=== PATIENT | female | born 1955 | race Caucasian/White ===

== ENCOUNTER → 2017-10-15 00:09 | Outpatient (CLI) | payer BC, SELFPAY ==
--- NOTE | 2017-10-15 08:53 | DI.REPORT_ITS ---
SYMPTOM/DIAGNOSIS: UPPER ABD PAIN R10.10 CCK HEPATOBILIARY SCAN: Comparison is made with 26 October 2007. 5.0 mCi Tc 99M Mebrofenin were administered IV. There is normal hepatic uptake. The gallbladder and small bowel are promptly visualized. 0.9 micrograms of Kinevac are administered via IV drip over 30 minutes. The gallbladder ejection fraction is 99%. IMPRESSION: Normal CCK hepatobiliary scan.
[2017-10-15] MEDS: Sincalide 5 MCG VIAL 0.9 MCG IJ (11:19)
== END ==
PROVIDERS: PCP Internal Medicine; Visit Provider Internal Medicine
DX: R10.11 Right upper quadrant pain (principal)
CPT/HCPCS: 78227

== ENCOUNTER 2017-11-13 18:57 | Outpatient (REF) | payer BC, SELFPAY ==
[2017-11-17 11:17] LABS: IgA 67 mg/dL (85-499); IgG 690 mg/dL (610-1616); IgM 19 mg/dL (35-242)
[2017-11-17 15:15] LABS: Cheese Cheddar IgE <0.35 kU/L; Milk, IgE <0.35 kU/L; Whey, IgE <0.35 kU/L
== END 2017-11-13 18:58 ==
LOC: LBN 18:57
PROVIDERS: PCP Internal Medicine; Visit Provider Otolaryngology Otolaryngology/Facial Plastic Surgery
DX: R10.812 Left upper quadrant abdominal tenderness (principal); G89.29 Other chronic pain; R10.9 Unspecified abdominal pain
CPT/HCPCS: 82784; 86003

== ENCOUNTER 2018-02-12 08:50 | Outpatient (CLI) | payer BC, SELFPAY ==
--- NOTE | 2018-02-12 08:45 | DI.RAD_ITS ---
SYMPTOM/DIAGNOSIS: PAINFUL HARDWARE RT ANKLE RIGHT ANKLE: Three views were obtained. No previous films available for comparison. There is plate and screw fixation of the distal fibula and fixation screws also present in the distal tibia. Mild degenerative changes of the joints of the ankle noted. No other significant bony abnormality is seen.
== END 2018-02-12 09:10 ==
PROVIDERS: PCP Internal Medicine; Visit Provider Physician Assistant
DX: T84.84XA Pain due to internal orthopedic prosthetic devices, implants and grafts, initial encounter (principal)
CPT/HCPCS: 73610

== ENCOUNTER 2018-03-04 09:59 | Outpatient (CLI) | payer BC, SELFPAY | END 2018-03-04 10:19 | PROVIDERS: PCP Internal Medicine; Visit Provider Student in an Organized Health Care Education/Training Program | DX: T84.84XA Pain due to internal orthopedic prosthetic devices, implants and grafts, initial encounter (principal); Z01.818 Encounter for other preprocedural examination ==

== ENCOUNTER 2018-03-10 10:28 | Day surgery (SDC) | payer BC, SELFPAY ==
[2018-03-10 10:40] VITALS: BP 125/80; PULSE 71; RESP 16; TEMP 36.6; O2SAT 95
--- NOTE | 2018-03-10 10:55 | DI.RAD_ITS ---
SYMPTOMS/DIAGNOSIS: PAINFUL ORTHOPEDIC HARDWARE REMOVAL RIGHT ANKLE, C-ARM FLUOROSCOPY: Fluoroscopy Time: 7.1 sec, 0.18 mGy C-arm fluoroscopy was utilized by Dr. Fraser during reported hardware removal. Hard copies show removal of the previously noted plate and screw fixation of the distal fibula. Hardware of the distal tibia remains in place.
[2018-03-10] MEDS: Lactated Ringers 1,000 ML 80 ML IV (11:00)
--- NOTE | 2018-03-10 11:46 | PDOC.DSDIS_ITS ---
Discharge Plan Disposition Patient Disposition: HOME Condition: Good Discharge Details Reason For Visit: R) ANKLE PAINFUL HARDWARE Attending Provider: Main Fraser Primary Care Provider: Ej Bustamante Home Meds and New Rx's Prescriptions: New tramadol 50 mg tablet 50 mg PO Q6H PRN (Reason: pain) Qty: 6 RF: 0 walker misc .ROUTE .MEDSUPPLY Qty: 1 RF: 0 Continued hyoscyamine sulfate 0.125 mg tablet 0.125 mg PO QID RF: 0 estradiol [Estrace] 0.01 % (0.1 mg/gram) cream 1 gm VG DAILY RF: 0 lansoprazole 15 mg capsule,delayed release(DR/EC) 15 mg PO DAILY RF: 0 glycopyrrolate 1 mg tablet 1 mg PO TID PRNRF: 0 lorazepam 1 MG tablet 0.5 mg PO BID RF: 0 fluoxetine 20 MG capsule 40 mg PO DAILY RF: 0 Loratadine 10 MG TAB.RAPDIS 10 mg PO DAILY RF: 0 lysine [L-Lysine] 500 mg Tablet 500 mg PO DAILY RF: 0 acetaminophen [Tylenol] 325 mg Capsule 325 mg PO Q6H PRNRF: 0 ketoconazole 120 ML shampoo 1 applic Topical DAILY PRN PRNRF: 0 cholecalciferol (vitamin D3) 1,000 UNITS tablet 1,000 unit PO DAILY RF: 0 diclofenac sodium [Voltaren] 100 GM gel 1 applic Topical TID PRN PRNRF: 0 Probiotic and Acidophilus 1 EACH capsule 1 cap PO DAILY PRN PRNRF: 0 Discharge Instructions Additional Instructions: Activity: You may weight bear as tolerated. You should keep the leg elevated as much as possible. You may wiggle your toes and move your hip and knee. You should wear the fracture walking boot when you are up and mobilizing, but may remove it when not and move your ankle as tolerated. Dressings: You should keep the initial dressing on for at least 3 days. After 3 days, you may remove it and get it wet in the shower. You should keep it covered with a light gauze dressing or wrap until follow-up. Medications: - You should take Tylenol and Ibuprofen gel-cap around the clock for baseline pain. - You have been prescribed a stronger narcotic, Tramadol, for breakthrough pain. Follow-up: 2 weeks Referrals: Main Fraser MD [ [facility] STAFF PHYSICIAN] - Equipment/Supplies: Partial Weight Bearing Crutches Activity:: Elevate Remove Dressings/Wound Care:: 72 hours Shower/Bathe:: 72 hours Diet:: As Tolerated Discharge Orders Discharge Orders: Discharge Order (Routine); Ordered 03/10/18 Ordered By: Main Fraser DS: Diagnosis Discharge Diagnosis (1) Painful orthopaedic hardware: Status: Chronic
[2018-03-10 13:15] VITALS: BP 121/80; PULSE 65; RESP 17; TEMP 36.5; O2SAT 99
--- NOTE | 2018-03-12 07:32 | ROE_ITS ---
REPORT OF OPERATIVE PROCEDURE DATE OF SURGERY March 10, 2018 PREOPERATIVE DIAGNOSIS Painful hardware of right ankle. POSTOPERATIVE DIAGNOSIS Painful hardware of right ankle. SURGERY Hardware removal of right ankle. SURGEON Main Fraser M.D. ANESTHESIA MAC ESTIMATED BLOOD LOSS Minimal. COMPLICATIONS None. DISPOSITION The patient was awakened from anesthesia and taken to the PACU in stable condition. INDICATION FOR PROCEDURE Stephanie is a 62-year-old who has painful hardware of her right ankle. This was repaired some years ago , but over the last few years, it has become more painful. It hurts with direct pressure and the scre ws are palpable and prominent visually. They irritate her shoes and she is unable to wear certain carlos ewear because of it. She has tried modifying her shoewear, but it continues to bother her where she h as calluses over these areas. She sought to have this removed. I reviewed the risks to include bleedi ng, infection, pain, stiffness, re-fracture, damage to nerves and vessels. Despite these risks, she e lected to proceed. PROCEDURE DESCRIPTION Stephanie was greeted in the Preoperative holding area. Her identity was confirmed and the correct side was identified and marked. The consent was reviewed with the patient and signed. The history and phys ical was updated. She was taken back to the Operating Room and placed in the supine position. All bon y prominences were well padded. The right leg had a nonsterile tourniquet placed high up on the right thigh, but it was not used. The right leg was prepped with ChloraPrep and draped in a standard fashi on. Prophylactic antibiotics in the form of cefazolin were given. A time-out was performed for safe s urgery. The surgical site was injected with 0.5% Marcaine with epinephrine. The incision was opened and taken down sharply to the level of the plate. With deep dissection down to the plate, I was able to expose the plate fully using knife and a Otoole elevator. The screws on the plate were removed. The plate was removed from the bone. The x-rays performed in the office showed what appeared to be mainly some cyst ic changes on the distal aspect of the fibula. A curette was used to curette out the screw holes. The re was no purulent material. There was no large cystic change seen within the fibula in person; there fore, there was no further procedure done. These screw holes were curetted out fully from out the ent irety of the fibula. Dissection was also carried over the top of the fibula to remove the interfrag screw. These were all removed without difficulty. The ankle was imaged with a stress view to show the re was no change in the position of the fibula. The wound was thoroughly irrigated. The deep fascia w as closed with a #2-0 Vicryl. The skin was closed with a #3-0 Vicryl, followed by #4-0 Nylon. The wou nd was dressed with Xeroform, 4x4s, Giuliano wrap. She was placed in a fracture walker boot. At the end of the case, all counts were correct. She was transferred back to the PACU in stable condition.
== END 2018-03-10 13:44 | disposition home or self-care (01) ==
PROVIDERS: PCP Internal Medicine; Visit Provider Student in an Organized Health Care Education/Training Program
PROC: (CPT 20680; principal; 2018-03-10 12:15)
DX: T84.84XA Pain due to internal orthopedic prosthetic devices, implants and grafts, initial encounter (principal)
CPT/HCPCS: 20680; 73610; J0690; L4361

== ENCOUNTER 2018-06-16 03:40 | Outpatient (CLI) | payer BC, SELFPAY ==
--- NOTE | 2018-06-16 10:34 | DI.MAMMO_ITS ---
SYMPTOMS/DIAGNOSIS: SCREENING, Z12.39 MAMMOGRAMS: Mammograms were interpreted according to the usual protocol including computer analysis with CAD system, tomosynthesis and C view imaging. The breast tissue is heterogeneously radiodense, which lowers the sensitivity of the study. There is no dominant mass. There are no suspicious calcifications and there has been no significant interval change when compared with prior images. SUMMARY: No evidence of malignancy, category 1. Yearly screening mammography is recommended. Breast density category C. MQSA ASSESSMENT OF FINDINGS: Negative. Category 1. Patient will receive a letter notifying them of these results. Bi-RADS category C. The breasts are heterogeneously dense, which may obscure small masses.
== END 2018-06-16 04:00 ==
PROVIDERS: PCP Internal Medicine; Visit Provider Physician Assistant Medical
DX: Z12.31 Encounter for screening mammogram for malignant neoplasm of breast (principal)
CPT/HCPCS: 77063; 77067

== ENCOUNTER 2018-10-06 19:08 | Outpatient (REF) | payer BC, SELFPAY ==
[2018-10-06 21:43] LABS: ALT 31 U/L (12-78); AST 14 U/L (15-37); Albumin 4.2 g/dL (3.4-5.0); Alkaline Phosphatase 95 U/L (46-116); Anion Gap 10.2 mmol/L (3-11); BUN 9 mg/dL (7-18); Bilirubin, Total 0.3 mg/dL (0.2-1.0); CO2 25.8 mmol/L (21.0-32.0); CREATININE 0.81 mg/dL (0.55-1.02); Calcium 8.7 mg/dL (8.5-10.1); Chloride 94 mmol/L (98-107); Creatine Kinase 86 U/L (26-192); Glucose 124 mg/dL (70-100); Sodium 130 mmol/L (136-145); Total Protein 6.8 g/dL (6.4-8.2)
[2018-10-06 21:44] LABS: C-Reactive Protein < 0.05 mg/dL (0.0-0.3)
[2018-10-06 22:10] LABS: ESR 7 mm/hr (0-30)
[2018-10-06 22:49] LABS: Ferritin 17 ng/mL (8-388)
== END 2018-10-06 19:28 ==
LOC: NCHCN 19:08
PROVIDERS: PCP Internal Medicine; Visit Provider Internal Medicine
DX: M79.10 Myalgia, unspecified site (principal); G25.81 Restless legs syndrome
CPT/HCPCS: 80053; 82550; 85652; 82728; 86140

== ENCOUNTER 2018-11-17 21:51 | Outpatient (REF) | payer BC, SELFPAY ==
[2018-11-17 21:16] LABS: Anion Gap 8.4 mmol/L (3-11); BUN 8 mg/dL (7-18); CO2 26.6 mmol/L (21.0-32.0); CREATININE 0.88 mg/dL (0.55-1.02); Calcium 8.2 mg/dL (8.5-10.1); Chloride 102 mmol/L (98-107); Ferritin 20 ng/mL (8-388); Glucose 106 mg/dL (70-100); Potassium 3.9 mmol/L (3.5-5.1); Sodium 137 mmol/L (136-145); TSH 1.93 uIU/mL (0.36-3.74)
== END 2018-11-17 22:11 ==
LOC: NCHCN 21:51
PROVIDERS: PCP Internal Medicine; Visit Provider Internal Medicine
DX: Z00.00 Encounter for general adult medical examination without abnormal findings (principal); K58.9 Irritable bowel syndrome, unspecified
CPT/HCPCS: 80048; 82728; 84443

== ENCOUNTER 2018-12-17 10:04 | Outpatient (REF) | payer BC, SELFPAY ==
[2018-12-17 19:36] LABS: Calculated LDL 164 mg/dL; Cholesterol 232 mg/dL (50-200); Ferritin 29 ng/mL (8-388); Glucose 95 mg/dL (70-100); HDL Cholesterol 53 mg/dL (40-60); TSH 2.58 uIU/mL (0.36-3.74); Triglyceride 76 mg/dL (30-150)
== END 2018-12-17 10:24 ==
LOC: NCHCN 10:04
PROVIDERS: PCP Internal Medicine; Visit Provider Internal Medicine
DX: Z00.00 Encounter for general adult medical examination without abnormal findings (principal); G25.81 Restless legs syndrome
CPT/HCPCS: 80061; 82947; 82728; 84443

== ENCOUNTER 2019-01-06 00:55 | Outpatient (CLI) | payer BC, SELFPAY ==
--- NOTE | 2019-01-06 13:30 | DI.DEXA_ITS ---
EXAM: XR DEXA BONE DENSITY W/WO JUNE CLINICAL HISTORY: OSTEOPENIA M85.80 TECHNIQUE: DEXA scan was performed according to the usual protocol. COMPARISON: PREVIOUS EXAM OF 07/2009. LUMBAR SPINE COMPLETE from 01/02/2015 FINDINGS: Findings for lumbar spine scanning are a T-score of -0.1. Previous examination of July 2009 showed heber mbar T-score of 0.8. Left hip scanning shows T-score -0.8, left femoral neck T-score is -1.7. Previous exam of 07/2009 sh owed left hip T-score of -0.2. Left forearm scanning showed T-score of -1.3. Previous examination of July 2009 showed forearm T-scor e of 0.1. IMPRESSION: Findings consistent with osteopenia according to the WHO criteria. Please note that the lateral verte bral scanogram shows no evidence of a vertebral compression fracture.
== END 2019-01-06 01:15 ==
LOC: DI 00:55
PROVIDERS: PCP Internal Medicine; Visit Provider Internal Medicine
DX: M85.88 Other specified disorders of bone density and structure, other site (principal)
CPT/HCPCS: 77080

== ENCOUNTER 2019-02-01 22:31 | Outpatient (REF) | payer BC, SELFPAY | END 2019-02-01 22:51 | LOC: NCHCN 22:31 | PROVIDERS: PCP Internal Medicine | DX: R19.7 Diarrhea, unspecified (principal) | CPT/HCPCS: 87324 ==

== ENCOUNTER 2019-02-22 12:11 | Outpatient (REF) | payer BC, SELFPAY ==
[2019-02-22 19:41] LABS: Ferritin 36 ng/mL (8-252)
== END 2019-02-22 12:31 ==
LOC: NCHCN 12:11
PROVIDERS: PCP Internal Medicine; Visit Provider Internal Medicine
DX: E61.1 Iron deficiency (principal)
CPT/HCPCS: 82728

== ENCOUNTER 2019-08-15 14:37 | Outpatient (REF) | payer BC, SELFPAY ==
[2019-08-15 19:15] LABS: HCT 38.8 % (36.0-46.0); HGB 13.2 g/dL (12.0-15.5); Mean Corpuscular Hemoglobin 30.3 pg (27.0-33.0); Mean Corpuscular Volume 89.2 fL (80-95); Mean Platelet Volume 9.8 fL (8.0-11.0); Platelet Count 337 x1000/uL (130-400); RBC 4.35 m/cumm (4.00-5.20); White Blood Cell Count 4.98 k/cumm (4.4-10.8)
[2019-08-15 19:44] LABS: BUN 6 mg/dL (7-18); Chloride 99 mmol/L (98-107); Ferritin 36 ng/mL (8-252); Glucose 77 mg/dL (74-106); Potassium 3.7 mmol/L (3.5-5.1); Sodium 135 mmol/L (136-145)
== END 2019-08-15 14:57 ==
LOC: NCHCN 14:37
PROVIDERS: PCP Internal Medicine; Visit Provider Internal Medicine
DX: E61.1 Iron deficiency (principal); E87.1 Hypo-osmolality and hyponatremia; K22.9 Disease of esophagus, unspecified
CPT/HCPCS: 80048; 85027; 82728

== ENCOUNTER 2019-10-24 20:23 | Outpatient (REF) | payer BC, SELFPAY ==
[2019-10-24 18:50] LABS: HCT 38.1 % (36.0-46.0); HGB 12.8 g/dL (11.2-15.7); MCH 30.4 pg (27.0-33.0); MCHC 33.6 % (32.0-36.0); MCV 90.5 fL (80-95); MPV 9.3 fL (8.0-11.0); Platelet Count 287 10^3/uL (130-400); RBC 4.21 10^6/uL (3.93-5.22); RDW 12.3 % (11.7-14.6); WBC 6.68 10^3/uL (4.4-10.8)
[2019-10-24 19:32] LABS: ESR 9 mm/hr (0-30)
[2019-10-25 16:41] LABS: CRP, High Sensitivity 0.62 mg/L (See Note)
== END 2019-10-24 20:43 ==
LOC: NCHCN 20:23
PROVIDERS: PCP Internal Medicine; Visit Provider Internal Medicine
DX: L03.115 Cellulitis of right lower limb (principal); K58.9 Irritable bowel syndrome, unspecified; H10.823 Rosacea conjunctivitis, bilateral
CPT/HCPCS: 85027; 85652; 86141; 86140

== ENCOUNTER 2019-11-04 12:07 | Outpatient (CLI) | payer BC, SELFPAY ==
--- NOTE | 2019-11-04 11:15 | DI.RAD_ITS ---
EXAM: XR ANKLE RT COMPLETE CLINICAL HISTORY: right ankle pain. TECHNIQUE: 2D digital imaging was performed. COMPARISON: CR XR ANKLE RT COMPLETE from 02/12/2018 RF XR ANKLE RT COMPLETE from 03/10/2018 FINDINGS: No acute fracture is present. No bony destructive lesion is seen. Lucencies are seen in the distal f ibula related to previous hardware. Screws remain present in the distal tibia. The distal tibia and fibular fractures have healed. Degenerative changes are noted at the tibiotalar joint. Heel spurs are seen. IMPRESSION: Postsurgical and degenerative changes. DATA REPOSITORY: RADIATION DOSE DELIVERED:
--- NOTE | 2019-11-04 11:15 | DI.RAD_ITS ---
EXAM: XR KNEE LT 3V AP,LAT,CATY CLINICAL HISTORY: lt knee pain. TECHNIQUE: 2D digital imaging was performed. COMPARISON: No exams were available for comparison FINDINGS: BONES: No acute fracture is present. No bony destructive lesion is seen. There is mild spurring at the quadriceps insertion on the patella. There is mild periarticular spurring throughout. JOINTS: The knee is normally aligned. No joint effusion is seen. SOFT TISSUE: Normal. IMPRESSION: Mild degenerative changes. DATA REPOSITORY: RADIATION DOSE DELIVERED:
== END 2019-11-04 12:27 ==
PROVIDERS: PCP Internal Medicine; Referring Provider Internal Medicine; Visit Provider Physician Assistant Surgical
DX: M17.12 Unilateral primary osteoarthritis, left knee (principal); M19.071 Primary osteoarthritis, right ankle and foot
CPT/HCPCS: 73562; 73610

== ENCOUNTER 2019-11-10 14:19 | Outpatient (REF) | payer BC, SELFPAY ==
[2019-11-10 19:34] LABS: Calculated LDL 170 mg/dL (<100); Cholesterol 264 mg/dL (<200); Glucose 97 mg/dL (74-106); HDL Cholesterol 53 mg/dL (40-60); Triglyceride 207 mg/dL (<150)
== END 2019-11-10 14:39 ==
LOC: NCHCN 14:19
PROVIDERS: PCP Internal Medicine; Visit Provider Internal Medicine
DX: Z00.00 Encounter for general adult medical examination without abnormal findings (principal); Z13.220 Encounter for screening for lipoid disorders; Z13.1 Encounter for screening for diabetes mellitus
CPT/HCPCS: 80061; 82947

== ENCOUNTER 2019-11-15 11:33 | Outpatient (REF) | payer BC, SELFPAY ==
[2019-11-15 19:58] LABS: Iron 109 ug/dL (50-170); Total Iron Binding Capacity 323 ug/dL (250-450); Transferrin Sat 34 % (15-50)
[2019-11-15 19:59] LABS: ALT 47 U/L (14-59); AST 28 U/L (15-37); Albumin 4.3 g/dL (3.4-5.0); Alkaline Phosphatase 110 U/L (46-116); Anion Gap 11.3 mmol/L (3-11); BUN 7 mg/dL (7-18); Bilirubin, Direct 0.12 mg/dL (0.00-0.20); Bilirubin, Total 0.5 mg/dL (0.2-1.0); CO2 26.7 mmol/L (21.0-32.0); CREATININE 0.73 mg/dL (0.55-1.02); Calcium 8.7 mg/dL (8.5-10.1); Chloride 100 mmol/L (98-107); Glucose 96 mg/dL (74-106); Potassium 3.8 mmol/L (3.5-5.1); Sodium 138 mmol/L (136-145)
[2019-11-15 23:24] LABS: Ferritin 69 ng/mL (8-252); Vitamin B12 856 pg/mL (193-986)
== END 2019-11-15 11:53 ==
LOC: NCHCN 11:33
PROVIDERS: PCP Internal Medicine; Visit Provider Physician Assistant
DX: M79.10 Myalgia, unspecified site (principal)
CPT/HCPCS: 80048; 80076; 82607; 82728; 83540; 83550; 83735

== ENCOUNTER 2019-12-28 10:44 | Outpatient (REF) | payer BC, MEDICAID, SELFPAY ==
[2019-12-28 21:38] LABS: Calculated LDL 198 mg/dL (<100); Cholesterol 284 mg/dL (<200); Glucose 98 mg/dL (74-106); HDL Cholesterol 56 mg/dL (40-60); Triglyceride 152 mg/dL (<150)
[2019-12-28 21:43] LABS: Hemoglobin A1C 5.5 % (<5.7)
== END 2019-12-28 11:04 ==
LOC: NCHCN 10:44
PROVIDERS: PCP Internal Medicine; Visit Provider Physician Assistant
DX: E78.5 Hyperlipidemia, unspecified (principal); Z13.1 Encounter for screening for diabetes mellitus
CPT/HCPCS: 80061; 82947; 83036

== ENCOUNTER 2020-03-12 09:00 | Outpatient (REF) | payer BC, SELFPAY ==
[2020-03-12 19:39] LABS: ALT 36 U/L (14-59); AST 24 U/L (15-37); Albumin 4.2 g/dL (3.4-5.0); Alkaline Phosphatase 86 U/L (46-116); Anion Gap 7.4 mmol/L (3-11); BUN 13 mg/dL (7-18); Bilirubin, Total 0.6 mg/dL (0.2-1.0); CO2 28.6 mmol/L (21.0-32.0); CREATININE 0.82 mg/dL (0.55-1.02); Calcium 8.2 mg/dL (8.5-10.1); Calculated LDL 115 mg/dL (<100); Chloride 101 mmol/L (98-107); Cholesterol 188 mg/dL (<200); Ferritin 47 ng/mL (8-252); Glucose 99 mg/dL (74-106); HDL Cholesterol 60 mg/dL (40-60); Potassium 3.8 mmol/L (3.5-5.1); Sodium 137 mmol/L (136-145); Total Protein 6.9 g/dL (6.4-8.2); Triglyceride 65 mg/dL (<150)
== END 2020-03-12 09:20 ==
LOC: NCHCN 09:00
PROVIDERS: PCP Internal Medicine; Visit Provider Physician Assistant
DX: E78.5 Hyperlipidemia, unspecified (principal); R19.7 Diarrhea, unspecified; E61.1 Iron deficiency
CPT/HCPCS: 80053; 80061; 82728

== ENCOUNTER 2020-06-01 15:37 | Outpatient (REF) | payer OTHER, SELFPAY ==
[2020-06-02 11:38] LABS: COVID-19 RT-PCR UVMMC Result Negative (Negative)
== END 2020-06-01 15:38 | disposition home or self-care (01) ==
LOC: NCHCN 15:37
PROVIDERS: PCP Internal Medicine; Visit Provider Internal Medicine
DX: Z20.822 Contact with and (suspected) exposure to COVID-19 (principal); R06.02 Shortness of breath
CPT/HCPCS: U0003

== ENCOUNTER 2020-08-03 11:10 | Outpatient (REF) | payer OTHER, SELFPAY ==
[2020-08-05 17:29] LABS: COVID-19 RT-PCR UVMMC Result Negative (Negative)
== END 2020-08-03 11:11 | disposition home or self-care (01) ==
LOC: NCHCN 11:10
PROVIDERS: PCP Internal Medicine; Visit Provider Internal Medicine
DX: Z20.822 Contact with and (suspected) exposure to COVID-19 (principal)
CPT/HCPCS: 87635; U0003

== ENCOUNTER 2020-10-15 09:50 | Outpatient (REF) | payer MEDICARE, SELFPAY ==
[2020-10-15 19:30] LABS: Iron 132 ug/dL (50-170); Total Iron Binding Capacity 313 ug/dL (250-450); Transferrin Sat 42 % (15-50)
[2020-10-15 19:40] LABS: ALT 29 U/L (14-59); AST 24 U/L (15-37); Albumin 4.2 g/dL (3.4-5.0); Alkaline Phosphatase 100 U/L (46-116); BUN 12 mg/dL (7-18); Bilirubin, Total 0.6 mg/dL (0.2-1.0); CREATININE 0.8 mg/dL (0.55-1.02); Calcium 8.1 mg/dL (8.5-10.1); Calculated LDL 121 mg/dL (<100); Chloride 99 mmol/L (98-107); Cholesterol 191 mg/dL (<200); Ferritin 43 ng/mL (8-252); Glucose 99 mg/dL (74-106); HDL Cholesterol 52 mg/dL (40-60); Magnesium 1.9 mg/dL (1.8-2.4); Sodium 137 mmol/L (136-145); Total Protein 6.6 g/dL (6.4-8.2); Triglyceride 94 mg/dL (<150)
== END 2020-10-15 09:51 | disposition home or self-care (01) ==
LOC: NCHCN 09:50
PROVIDERS: PCP Internal Medicine; Visit Provider Physician Assistant
DX: E61.1 Iron deficiency (principal); E78.5 Hyperlipidemia, unspecified; R53.1 Weakness
CPT/HCPCS: 80053; 80061; 82728; 83540; 83550; 83735

== ENCOUNTER 2021-04-19 14:43 | Outpatient (REF) | payer MEDICARE, SELFPAY ==
[2021-04-19 19:41] LABS: TSH (W/Ref FT4) 1.81 uIU/mL (0.36-3.74)
== END 2021-04-19 14:44 | disposition home or self-care (01) ==
LOC: LBN 14:43
PROVIDERS: PCP Physician Assistant; Visit Provider Surgery
DX: F45.8 Other somatoform disorders (principal); R53.1 Weakness
CPT/HCPCS: 84443; 84481

== ENCOUNTER 2022-01-20 14:46 | Outpatient (REF) | payer MEDICARE, SELFPAY ==
[2022-01-20 20:20] LABS: Uric Acid 4.5 mg/dL (2.6-6.0)
[2022-01-22 15:46] LABS: HLA-B27 Result Negative
== END 2022-01-20 14:47 | disposition home or self-care (01) ==
LOC: NCHCN 14:46
PROVIDERS: PCP Physician Assistant; Visit Provider Nurse Practitioner Family
DX: R22.41 Localized swelling, mass and lump, right lower limb (principal)
CPT/HCPCS: 86812; 84550

== ENCOUNTER 2022-03-07 10:15 | Outpatient (REF) | payer MEDICARE, SELFPAY ==
[2022-03-07 20:22] LABS: ALT 28 U/L (14-59); AST 28 U/L (15-37); Albumin 4.1 g/dL (3.4-5.0); Alkaline Phosphatase 96 U/L (46-116); Anion Gap 9.1 mmol/L (3-11); BUN 8 mg/dL (7-18); Bilirubin, Total 0.6 mg/dL (0.2-1.0); CO2 27.9 mmol/L (21.0-32.0); CREATININE 0.8 mg/dL (0.55-1.02); Calcium 8.2 mg/dL (8.5-10.1); Calculated LDL 87 mg/dL (<100); Chloride 99 mmol/L (98-107); Cholesterol 166 mg/dL (<200); Estimated GFR 81.21 (mL/min/1.73m2); Glucose 103 mg/dL (74-106); HDL Cholesterol 65 mg/dL (40-60); Potassium 3.9 mmol/L (3.5-5.1); Sodium 136 mmol/L (136-145); Total Protein 7.1 g/dL (6.4-8.2); Triglyceride 74 mg/dL (<150)
== END 2022-03-07 10:16 | disposition home or self-care (01) ==
LOC: NCHCN 10:15
PROVIDERS: PCP Physician Assistant; Visit Provider Physician Assistant
DX: E78.5 Hyperlipidemia, unspecified (principal)
CPT/HCPCS: 80053; 80061

== ENCOUNTER 2022-07-01 14:43 | Outpatient (REF) | payer MEDICARE, SELFPAY | END 2022-07-01 14:44 | disposition home or self-care (01) | LOC: NCHCN 14:43 | PROVIDERS: PCP Physician Assistant; Visit Provider Nurse Practitioner Family | DX: J39.2 Other diseases of pharynx (principal) | CPT/HCPCS: 87070 ==

== ENCOUNTER 2022-09-22 06:16 | Day surgery (SDC) | payer MEDICARE, SELFPAY ==
[2022-09-22] VITALS (7 sets, daily range): BP systolic 107–136; BP diastolic 67–91; PULSE 78–104; RESP 11–21; TEMP 36.1–36.7; O2SAT 96–100; BMI 26.7
--- NOTE | 2022-09-22 07:28 | W.ANESPRE ---
General Info Date of Service Date Performed: 09/22/22 Height: 5 ft 2.5 in Weight: 67.5 kg Body Mass Index (BMI): 26.7 Surgical Procedure: Operation Date: 09/22/22 07:40 Proposed Procedure Side Surgeon p Bronchoscopy w/JOAQUÍN Canales MD Meds Allergies and Home Medications Allergies Allergy/AdvReac Type Severity Reaction Status Date / Time amitriptyline Allergy Intermediate messed up Verified 09/22/22 06:47 my head nabumetone Allergy Mild Verified 09/22/22 06:47 latex Allergy Unknown Skin Rash Verified 09/22/22 06:47 hyoscyamine Allergy Verified 09/22/22 06:47 levalbuterol [From Xopenex] Allergy Verified 09/22/22 06:47 naproxen Allergy Verified 09/22/22 06:47 sodium chloride for Allergy Verified 09/22/22 06:47 inhalation [From Saline] pseudoephedrine AdvReac Intermediate Agitation Verified 09/22/22 06:47 [From Sudafed] amoxicillin [From Augmentin] AdvReac Mild Diarrhea Verified 09/22/22 06:47 articaine AdvReac Mild Skin Rash Verified 09/22/22 06:47 cephalexin AdvReac Mild Diarrhea Verified 09/22/22 06:47 ciprofloxacin [From Cipro] AdvReac Mild Diarrhea Verified 09/22/22 06:47 clavulanic acid AdvReac Mild Diarrhea Verified 09/22/22 06:47 [From Augmentin] clindamycin AdvReac Mild Diarrhea Verified 09/22/22 06:47 cyclosporine [From Restasis] AdvReac Mild eyes burned Verified 09/22/22 06:47 dicyclomine AdvReac Mild Diarrhea Verified 09/22/22 06:47 duloxetine AdvReac Mild Diarrhea Verified 09/22/22 06:47 gluten AdvReac Mild Diarrhea Verified 09/22/22 06:47 and bloating lactose AdvReac Mild Diarrhea Verified 09/22/22 06:47 mometasone furoate AdvReac Mild NOSE RIZVI Verified 09/22/22 06:47 [From Nasonex] NSAIDS (Non-Steroidal AdvReac Mild GI Verified 09/22/22 06:47 Anti-Inflamma Penicillins AdvReac Mild Diarrhea Verified 09/22/22 06:47 prednisone AdvReac Mild rash in Verified 09/22/22 06:47 mouth Sulfa (Sulfonamide AdvReac Mild Diarrhea Verified 09/22/22 06:47 Antibiotics) Jaya 530 Foam EKG Allergy Intermediate Skin Rash Uncoded 09/22/22 06:47 Electrodes JESSICA BENGAL Allergy Mild Uncoded 09/22/22 06:47 EKG electrodes Allergy Unknown rash, Uncoded 09/22/22 06:47 swelling & pain from Jaya-Foam articadent Allergy unknown Uncoded 09/22/22 06:47 green beans Allergy Uncoded 09/22/22 06:47 MULTIPLE FOOD ALLERGIES Allergy Uncoded 09/22/22 06:47 walnuts Allergy Uncoded 09/22/22 06:47 Home Medication Medication Instructions Recorded ketoconazole 2 % shampoo 1 applic topical DAILY PRN PRN 04/17/16 glycopyrrolate 1 mg tablet 1 mg PO TID PRN 02/12/18 lysine 500 mg tablet (L-Lysine) 500 mg PO DAILY 03/04/18 acetaminophen 325 mg capsule 325 mg PO Q6H PRN 03/10/18 (Tylenol) walker #1 ea 03/10/18 aluminum-mag hydroxide-simethicone 5 ml PO QID PRN 12/21/18 400 mg-400 mg-40 mg/5 mL oral susp (Mylanta Maximum Strength) fluoxetine 20 mg capsule 20 mg PO DAILY 11/04/19 diclofenac sodium 1 % topical gel 4 g topical QID #450 grams 12/06/19 (Voltaren) rosuvastatin 10 mg tablet 10 mg PO DAILY 02/21/21 cyclobenzaprine 10 mg tablet 10 mg PO HS 03/13/22 fexofenadine 180 mg tablet 180 mg PO DAILY PRN allergy 03/24/22 symptoms #30 tabs CBD ointment topical 07/04/22 albuterol sulfate 90 mcg/actuation 90 mcg inhalation Q4H PRN 07/04/22 breath activated powder shortness of breath or wheezing inhaler,sensor calcium carbonate [Antacid 1 cap PO DAILY 07/04/22 (calcium carbonate)] codeine 10 mg-guaifenesin 100 mg/5 5 ml PO ONCE 07/04/22 mL oral liquid famotidine 20 mg tablet 20 mg PO BID PRN 07/04/22 lansoprazole 15 mg capsule,delayed 15 mg PO DAILY 07/04/22 release multivitamin (Daily Multi-Vitamin 1 tab PO DAILY 07/04/22 tablet) psyllium husk 3.4 gram/5.4 gram 0.5 tbsp PO DAILY 07/04/22 oral powder (Metamucil) vitamin E (dl, acetate) 1 cap PO DAILY 07/04/22 albuterol sulfate 2.5 mg/3 mL 2.5 mg inhalation Q4H PRN 08/01/22 (0.083 %) solution for nebulization polyethylene glycol 3350 17 17 g PO BID PRN 08/01/22 gram/dose oral powder (Miralax) fluticasone propionate 50 1 spray intranasal BID #16 grams 08/20/22 mcg/actuation nasal spray,suspension (Flonase Allergy Relief) ibuprofen 200 mg capsule 200 mg PO Q6H PRN 09/05/22 Current Visit Medications: Current Medications Generic Name Dose Route Start Last Admin Trade Name Freq PRN Reason Stop Dose Admin Albuterol/Ipratropium 3 ml 09/22/22 06:54 Albuterol/Ipratropium 3 Ml Upd Vial UPD 10/22/22 06:53 Q2H PRN PRN Ringer's Solution 1,000 mls @ 80 mls/hr 09/22/22 06:00 IV 10/19/22 23:59 INFUSION AKIKO IV Miscellaneous Supplies 1 each 09/22/22 06:00 Iv Access IV 10/19/22 23:59 DIRECTED AKIKO Sodium Chloride 0 ml 09/22/22 06:00 Normal Saline Flush 10 Ml Syr IV 10/19/22 23:59 PRN PRN Sodium Chloride 0 ml 09/22/22 06:00 Normal Saline 10 Ml Vial IJ 10/19/22 23:59 DIRECTED PRN Sterile Water 0 ml 09/22/22 06:00 Water,Injection,Sterile 10 Ml Vial IJ 10/19/22 23:59 DIRECTED PRN PFSH Active Problems Active Problems: Problem Status Onset Code Bronchiectasis J47.9 Asthma J45.909 Chronic cough R05.3 Expiratory wheezing R06.2 Sensorineural hearing loss (SNHL) of both ears H90.3 Wheezing R06.2 Dysfunction of left eustachian tube H69.82 Viral URI J06.9 Impacted cerumen, right ear H61.21 Dysfunction of both eustachian tubes H69.83 Medical History Medical History Acute ankle pain Anxiety Chronic abdominal pain Chronic back pain Chronic constipation Chronic headaches Closed right ankle fracture Cough Depression Dysphagia Gastritis Hiatal hernia Irritable bowel syndrome Laryngopharyngeal reflux Left knee pain Nerve entrapment syndrome Osteoarthritis Otitis externa (01/27/13) Plantar fasciitis of right foot Referred otalgia of left ear Rhinitis (01/27/13) Rosacea Ocular and cutaneous Seasonal allergies Sensorineural hearing loss, bilateral (10/18/13) Shoulder pain Tinnitus (04/14/13) Weight loss Medical History Comments:: 09/22/22: pt reports she had tremendous pressure/pain in her chest area 09/21/22. Pt reports a small blood vessel in her R breast area. Took tylenol for pain management. 09/22/22 pt has uncontrollable coughing during lung asculatation Surgical History Surgical History colonoscopy (04/23/16) normal-06/22/00, 05/25/06,09/29/11 H/O tooth extraction History of esophagogastroduodenoscopy (EGD) Normal- 05/05/05, 09/06/09, 05/30/14 History of Cabrera fundoplication History of repair of hiatal hernia History of tonsillectomy and adenoidectomy Hx of appendectomy as a teenager S/P total abdominal hysterectomy and bilateral salpingo-oophorectomy Status post hardware removal Right ankle hardware removal due to painful hardware DOS: 03/10/18 Dr. Fraser Tobacco Smoking/Tobacco Use Status: Former Tobacco Use Alcohol Alcohol Intake: former Substance Use Substance use: Never Substance use type: does not use Vital Signs and Lab Results Vital Signs Most Recent Vital Signs in EMR: Most Recent Vital Signs Temp Pulse Resp BP Pulse Ox 36.6 C 91 H 18 136/91 H 98 09/22/22 06:31 09/22/22 06:31 09/22/22 06:31 09/22/22 06:31 09/22/22 06:31 Lab Results Blood Type / Crossmatch: No Data to Display Complete Blood Count: No Data to Display Complete Metabolic Panel: No Data to Display Liver Function Panel: No Data to Display Coagulation Panel: No Data to Display Cardiac Panel: No Data to Display Arterial Blood Gas: No Data to Display Venous Blood Gas: No Data to Display Pancreas Panel: No Data to Display Thyroid Panel: No Data to Display Infectious Disease: No Data to Display Blood Cultures: No Data to Display Toxicology Panel: No Data to Display Anesthesia Assessment and Plan Anesthesia History Personal History: No History of Anesthesia Complications Family History: No Family History of Anesthesia Complications Exercise Tolerance Exercise Tolerance: Metabolic Equivalents>4 Pertinent Negatives Pertinent Negatives: No Symptoms of GERD Cardiac & Pulmonary Exam Cardiac Exam: Normal S1/S2 Heart Sounds Pulmonary Exam: Clear Bilateral Breath Sounds Implantable Cardiac Device Does patient have a Pacemaker or an ICD?: No Airway Exam Known Difficult Airway: No Mallampati Class: 2 Mouth Opening: Normal (> 3cm) Thyromental Distance: Greater than 3 cm Neck Range of Motion: Full ROM Neck Circumference: Normal Teeth Condition: Normal Dentition ASA Classification ASA Score: ASA 2 Emergency Case?: No NPO Status NPO Status: NPO Clears >2 hours, Solids >8 hours Anesthesia Plan Resuscitation Status: Full Code Anesthesia Technique: General Anesthesia Airway Planned: Endotracheal Tube Monitors Used: Standard Monitors
[2022-09-22] MEDS: Lactated Ringers 1,000 ML 80 ML IV (07:43)
[2022-09-22] MEDS: Lidocaine 1% Multi-Dose 10 ML VIAL (08:05)
--- NOTE | 2022-09-22 08:07 | PAPNONF_PTH ---
PATIENT: Stephanie Mcmillan LOC: [facility] U#:[id number] AGE/SX: 66/F ROOM: RE09/22/[address]: Lissett Canales MD : [id number] BED: DIS: 09/22/2022 SPEC #: [id number] RECD: 09/22/22 12:52 STATUS: MARCOS REQ #: [id number] LULU: 09/22/22 08:[address]: Lissett Canales [facility]PT[facility] Cytology RECD BY: Danielle Hagen ENTERED: 09/22/22 12:52 SP TYPE: PAPODIN FOSTER DR: Carolyn Rosado Tissues: 1 - BODY FLUID CYTO(NOT S/U/N/EM)[facility] Procedures: BODY FLUID CYTO(NOT SPU/UR/NIP/ENDOM)[facility] SPECIAL STAIN 1 Comments: [id number] (TOTAL VOLUME = 10 ml, SENT FRESH) (REFRIGERATED)
--- NOTE | 2022-09-22 09:06 | W.PM.OP ---
Date of service: 09/22/22 Time of Service: 08:00 Operative Note Operative Note PRE-OP DIAGNOSIS: Bronchiectasis POST-OP DIAGNOSIS: same Refer to Anesthesia Record Procedure Description: Bronchoscopy Indication:bronchiectasis and infiltrates Procedure performed: Flexible bronchoscopy with BAL Sedation plan: General sedation Informed consent was obtained after the risks and benefits or the procedure were discussed. Anesthesia sedated and intubated the patient with an 8.0 ETT. A proper and complete OR compliant time out was performed. The therapeutic 6.2mm Olympus bronchoscope was inserted through endotracheal tube. The bronchoscope was inserted into the airways, were 3cc in total of 1% topical lidocaine was used the anesthetize the airways. The trachea was midline and without lesion or injury. The mucosa appeared normal and there were no signs of tracheomalacia. The jorge luis was sharp. All bronchial subsegments were visualized within each lobe and showed normal mucosa with some anatomical variants and likely enlarged bronchial diameter consistent with bronchiectasis. There were trace clear secretions scattered throughout the airways. A bronchoalveolar lavage was performed in the [facility]. A total of 120cc of saline was administered with a return of 55cc. The fluid was slightly cloudy in appearance with come visible mucus plugs. The bronchoscope was then removed and the case terminated. The patient was taken to PACU in stable condition. Samples collected:[facility] BAL Testing ordered:cell diff, bacterial, AFB and fungal cultures, cytopathology with a silver stain Complications:Negro Canales MD Pulmonary [facility] Critical Care Medicine
--- NOTE | 2022-09-22 09:13 | W.ANESPOSTOP ---
Postoperative Evaluation Date, Time and Location Date Performed: 09/22/22 Time Performed: 09:14 Patient Location: Day Surgery Unit Vital Signs Most Recent Imported Vital Signs: Most Recent Vital Signs Temp Pulse Resp BP Pulse Ox 36.1 C L 86 16 107/67 97 09/22/22 09:04 09/22/22 09:04 09/22/22 09:04 09/22/22 09:04 09/22/22 09:04 Pain Score Most Recent Pain Score: Most Recent Pain Score Pain Level 0 09/22/22 09:04 Assessment Mental Status: Awake (Alert & Oriented to Patient Baseline) Airway and Respiratory Function: Patent airway with normal (patient baseline) respiratory exam Cardiovascular Function: Hemodynamically Stable Hydration Status: Adequately Hydrated Nausea & Vomiting: No Nausea or Vomiting Pain: Pt. Denies Any Pain Peripheral Nerve Block: Patient did not receive a nerve block
[2022-09-24 10:18] LABS: Path Review Fluid, other See Comments
[2022-10-21 09:33] LABS: Fungus Smear No Fungi Seen
== END 2022-09-22 10:14 | disposition home or self-care (01) ==
PROVIDERS: PCP Physician Assistant; Visit Provider Student in an Organized Health Care Education/Training Program
PROC: 0BJ08ZZ Inspection of Tracheobronchial Tree, Via Natural or Artificial Opening Endoscopic (ICD-10-PCS; CPT 31622; principal; 2022-09-22 07:30)
DX: J47.9 Bronchiectasis, uncomplicated (principal); R05.9 Cough, unspecified; J45.909 Unspecified asthma, uncomplicated; Z79.899 Other long term (current) drug therapy
CPT/HCPCS: 31624; 80162; 87070; 87102; 87116; 87205; 87206; 88104; 88312; J1100; J2001; J2250; J2405; J2704

== ENCOUNTER → 2023-01-16 11:27 | Outpatient (BNVA) | payer MEDICARE, SELFPAY | PROVIDERS: PCP Physician Assistant; Referring Provider Physician Assistant; Visit Provider Student in an Organized Health Care Education/Training Program | DX: J45.909 Unspecified asthma, uncomplicated (principal); Z79.899 Other long term (current) drug therapy; Z79.51 Long term (current) use of inhaled steroids; J47.9 Bronchiectasis, uncomplicated | CPT/HCPCS: 94664; 99214 ==

== ENCOUNTER 2023-03-11 15:49 | Outpatient (REF) | payer MEDICARE, SELFPAY ==
[2023-03-11 21:09] LABS: ALT 54 U/L (14-59); AST 42 U/L (15-37); Albumin 3.9 g/dL (3.4-5.0); Alkaline Phosphatase 93 U/L (46-116); Anion Gap 7.5 mmol/L (3-11); BUN 10 mg/dL (7-18); Bilirubin, Total 0.6 mg/dL (0.2-1.0); CO2 28.5 mmol/L (21.0-32.0); CREATININE 0.8 mg/dL (0.55-1.02); Calcium 8.4 mg/dL (8.5-10.1); Chloride 100 mmol/L (98-107); Estimated GFR 80.71 (mL/min/1.73m2); Glucose 104 mg/dL (74-106); Sodium 136 mmol/L (136-145); Total Protein 6.8 g/dL (6.4-8.2)
[2023-03-11 23:03] LABS: Calculated LDL 89 mg/dL (<100); Cholesterol 165 mg/dL (<200); HDL Cholesterol 64 mg/dL (40-60); Triglyceride 64 mg/dL (<150)
== END 2023-03-11 15:50 | disposition home or self-care (01) ==
LOC: NCHCN 15:49
PROVIDERS: Nurse Practitioner Family; PCP Physician Assistant; Visit Provider Internal Medicine
DX: E78.5 Hyperlipidemia, unspecified (principal)
CPT/HCPCS: 80053; 80061

== ENCOUNTER 2023-04-07 12:31 | Outpatient (REF) | payer MEDICARE, SELFPAY ==
[2023-04-07 19:37] LABS: HCT 39.5 % (36.0-46.0); HGB 13.3 g/dL (11.2-15.7); MCH 30.4 pg (27.0-33.0); MCHC 33.7 % (32.0-36.0); MCV 90 fL (80-95); MPV 9.6 fL (8.0-11.0); Platelet Count 264 10^3/uL (130-400); RBC 4.38 10^6/uL (3.93-5.22); RDW 12.7 % (11.7-14.6); RDW-SD 42.1 fL; WBC 4.26 10^3/uL (4.4-10.8)
[2023-04-07 20:34] LABS: PROTEIN < 6.0 mg/dL (0.0-11.9)
[2023-04-08 17:46] LABS: Rheumatoid Factor <8.6 IU/mL (<12.0)
[2023-04-09 10:19] LABS: Ro60 Ab, IgG <7.0 CU (<20.0); SS-A/Ro, IgG <2.3 CU (<20.0); SS-B (La) Ab, IgG <3.3 CU (<20.0)
[2023-04-09 12:52] LABS: ANA Interpretation Negative (Negative)
== END 2023-04-07 12:32 | disposition home or self-care (01) ==
LOC: NCHCN 12:31
PROVIDERS: PCP Physician Assistant; Visit Provider Internal Medicine
DX: H04.123 Dry eye syndrome of bilateral lacrimal glands (principal)
CPT/HCPCS: 85027; 84156; 86038; 86235; 86431

== ENCOUNTER 2024-04-12 10:19 | Outpatient (REF) | payer MEDICARE, SELFPAY ==
[2024-04-12 18:48] LABS: Abs Immature Grans 0.01 10^3/uL (0.0-0.06); Absolute Basophil Count 0.03 10^3/uL (0.0-0.2); Absolute Eosinophil Count 0.16 10^3/uL (0.0-0.7); Absolute Lymphocyte Count 1.43 10^3/uL (1.2-3.4); Absolute Monocyte Count 0.44 10^3/uL (0.1-0.8); Basophils % 0.7 %; Eosinophils % 3.5 %; Immature Grans % 0.2 %; Lymphocytes % 31.3 %; MCH 30.4 pg (27.0-33.0); MCHC 34.2 % (32.0-36.0); MCV 89 fL (80-95); MPV 9.1 fL (8.0-11.0); Monocytes % 9.6 %; Neutrophils % 54.7 %; Platelet Count 262 10^3/uL (130-400); RBC 4.28 10^6/uL (3.93-5.22); RDW 12.2 % (11.7-14.6); RDW-SD 39.8 fL; WBC 4.57 10^3/uL (4.4-10.8)
[2024-04-12 19:06] LABS: Iron 89 ug/dL (50-170); Total Iron Binding Capacity 330 ug/dL (250-450); Transferrin Sat 27 % (15-50)
[2024-04-12 19:17] LABS: ALT 34 U/L (14-59); AST 25 U/L (15-37); Albumin 3.9 g/dL (3.4-5.0); Alkaline Phosphatase 115 U/L (46-116); Anion Gap 9.4 mmol/L (3-11); BUN 10 mg/dL (7-18); Bilirubin, Total 0.44 mg/dL (0.2-1.0); CO2 26.6 mmol/L (21.0-32.0); CREATININE 0.8 mg/dL (0.55-1.02); Calcium 8.4 mg/dL (8.5-10.1); Calculated LDL 134 mg/dL (<100); Chloride 99 mmol/L (98-107); Cholesterol 210 mg/dL (<200); Estimated GFR 80.21 (mL/min/1.73m2); Ferritin 29 ng/mL (8-252); Glucose 106 mg/dL (74-106); HDL Cholesterol 54 mg/dL (40-60); Potassium 4.2 mmol/L (3.5-5.1); Sodium 135 mmol/L (136-145); Total Protein 6.9 g/dL (6.4-8.2); Triglyceride 110 mg/dL (<150)
== END 2024-04-12 10:20 | disposition home or self-care (01) ==
LOC: NCHCN 10:19
PROVIDERS: PCP Physician Assistant; Visit Provider Nurse Practitioner Family
DX: E61.1 Iron deficiency (principal); E78.5 Hyperlipidemia, unspecified
CPT/HCPCS: 80053; 80061; 82728; 83540; 83550; 85025

== ENCOUNTER 2024-11-21 11:04 | Outpatient (REF) | payer MEDICARE, SELFPAY ==
[2024-11-21 19:02] LABS: Abs Immature Grans 0.01 10^3/uL (0.0-0.06); HCT 37.7 % (36.0-46.0); HGB 12.5 g/dL (11.2-15.7); Immature Grans % 0.2 %; MCH 29.6 pg (27.0-33.0); MCHC 33.2 % (32.0-36.0); MCV 89 fL (80-95); MPV 9.0 fL (8.0-11.0); Platelet Count 263 10^3/uL (130-400); RBC 4.23 10^6/uL (3.93-5.22); RDW 12.4 % (11.7-14.6); RDW-SD 40.6 fL; WBC 4.14 10^3/uL (4.4-10.8)
[2024-11-21 19:14] LABS: ALT 48 U/L (14-59); AST 37 U/L (15-37); Albumin 4.1 g/dL (3.4-5.0); Alkaline Phosphatase 138 U/L (46-116); Anion Gap 9.7 mmol/L (3-11); BUN 7 mg/dL (7-18); Bilirubin, Total 0.5 mg/dL (0.2-1.0); CO2 26.3 mmol/L (21.0-32.0); Calcium 8.4 mg/dL (8.5-10.1); Chloride 99 mmol/L (98-107); Estimated GFR 69.20 (mL/min/1.73m2); Glucose 84 mg/dL (74-106); Potassium 4.1 mmol/L (3.5-5.1); Sodium 135 mmol/L (136-145); Total Protein 7.0 g/dL (6.4-8.2)
== END 2024-11-21 11:05 | disposition home or self-care (01) ==
LOC: NCHCN 11:04
PROVIDERS: PCP Physician Assistant; Visit Provider Nurse Practitioner Family
DX: R10.9 Unspecified abdominal pain (principal)
CPT/HCPCS: 80053; 85025